=== PATIENT | male | born 1955 | race Asian ===

== ENCOUNTER → 2022-08-17 | Day surgery (SDC) | payer MEDICARE, MEDICAID ==
[~2022-08-17] VITALS: Ht 162.6 cm; Wt 59.0 kg
[~2022-08-17] MED LIST: BALANCED SALT IRRIG SOLN 15ML ONE; BUPIVACAINE HCL/PF 0.75% (7.5MG/ML) 10ML ONE; DOCU-150 PO; ERYTHROMYCIN BASE 0.5% OPHTH OINT UD OP NR; ESCI10TA PO; FENTANYL CITRATE/PF 50MCG/ML 2ML VIAL ONE; GEMF600T PO; GLIP-12 PO; HYDR50CA PO; LIDOCAINE HCL 2%/EPINEPHRINE 1:100,000 20 ML VIAL INFIL ONE; LISI-186 PO; LORA-249 PO; MELA1TAB28 PO; METF-414 PO; MIDAZOLAM HCL 2 MG/2 ML VIAL ONE; MOM PO; PROPOFOL 200MG/20ML VIAL IV ONE; PROT40 PO; SODIUM CHLORIDE 0.9% 1,000 ML IV SCH; TETRACAINE 0.5% OPHTH DROPS 4ML ONE; TOPUD PO; TRAZ-251 PO
== END | disposition home or self-care (01) ==
LOC: OR 06:38
PROVIDERS: ATTEND Ophthalmology
DX: H02.005 Unspecified entropion of left lower eyelid (principal); I10 Essential (primary) hypertension; E11.9 Type 2 diabetes mellitus without complications; E78.5 Hyperlipidemia, unspecified; K21.9 Gastro-esophageal reflux disease without esophagitis; F41.9 Anxiety disorder, unspecified; F17.210 Nicotine dependence, cigarettes, uncomplicated; Z79.899 Other long term (current) drug therapy; Z98.890 Other specified postprocedural states; Z20.822 Contact with and (suspected) exposure to COVID-19; Z79.84 Long term (current) use of oral hypoglycemic drugs
CPT/HCPCS: 67921; 82962; 87426; C9803; J2250; J2704; J3010; J3490; Z7610